=== PATIENT | male | born 1950 | race Caucasian/White ===

== ENCOUNTER → 2024-01-28 | Outpatient (CLI) | payer MEDICARE, BC, SELFPAY ==
[2024-01-28 11:51] LABS: Albumin, Serum 4.7 gm/dL (3.4-4.8); Anion Gap 7 (7-16); BUN/Creatinine Ratio 24 Ratio (12-20); Blood Urea Nitrogen 36 mg/dL (9-23); Calcium 10.5 mg/dL (8.3-10.6); Calcium (Corrected) 10.5 mg/dL (8.5-10.1); Carbon Dioxide 27.5 mMol/L (20.0-31.0); Chloride 101 mMol/L (98-107); Creatinine (Component) 1.5 mg/dL (0.6-1.3); Glucose 217 mg/dL (74-106); Osmolality,Calculated 285 (275-295); Phosphorous 4.1 mg/dL (2.4-5.1); Potassium 5.1 mMol/L (3.4-5.1); Sodium 135 mMol/L (136-145); eGFR 48 See Note
== END | disposition home or self-care (01) ==
LOC: COPL 09:24
PROVIDERS: PCP Internal Medicine; Referring Provider Internal Medicine Cardiovascular Disease; Visit Provider Internal Medicine Cardiovascular Disease
DX: I50.22 Chronic systolic (congestive) heart failure (principal)
CPT/HCPCS: 36415; 80069

== ENCOUNTER → 2024-03-04 | Outpatient (CLI) | payer MEDICARE, BC, SELFPAY ==
[2024-03-04 12:02] LABS: Albumin, Serum 4.7 gm/dL (3.4-4.8); Anion Gap 8 (7-16); BUN/Creatinine Ratio 21 Ratio (12-20); Blood Urea Nitrogen 32 mg/dL (9-23); Calcium 10.2 mg/dL (8.3-10.6); Calcium (Corrected) 10.2 mg/dL (8.5-10.1); Carbon Dioxide 25.2 mMol/L (20.0-31.0); Chloride 103 mMol/L (98-107); Creatinine (Component) 1.5 mg/dL (0.6-1.3); Digoxin 0.8 ng/mL (0.8-2.0); Glucose 187 mg/dL (74-106); Osmolality,Calculated 283 (275-295); Phosphorous 4.4 mg/dL (2.4-5.1); Sodium 136 mMol/L (136-145); eGFR 48 See Note
== END | disposition home or self-care (01) ==
LOC: COPL 10:30
PROVIDERS: PCP Internal Medicine; Referring Provider Internal Medicine Cardiovascular Disease; Visit Provider Internal Medicine Cardiovascular Disease
DX: I50.22 Chronic systolic (congestive) heart failure (principal)
CPT/HCPCS: 36415; 80069; 80162

== ENCOUNTER 2024-04-14 14:39 | Emergency (ER) | payer MEDICARE, BC, SELFPAY ==
--- NOTE | 2024-04-14 14:45 | PD.EDRME ---
Rapid Medical Screening Exam RME Arrival date/time: 04/14/24 14:39 Time Seen by Provider: 04/14/24 14:44 RME Narrative: This is a 74-year-old male brought in by EMS secondary to near syncope. Per EMS the patient has a history of CHF, stent placement, diabetes, pacemaker and atrial fibrillation. The called EMS stated that he was dizzy and almost passed out but did not hit his head. Per EMS the blood pressure was 114/80 sitting and standing was 88/40. They placed oxygen on first mild hypoxia. The patient is on 4 L 99%.
--- NOTE | 2024-04-14 14:46 | XR_ITS ---
Examination: AP chest single view Technique one AP portable upright chest single view Exam date and time: April 14, 2024 1548 hours INDICATIONS: Syncope today. FINDINGS: Mild pneumonia left base Mild prominence left ventricle Ventricular cardiac lead satisfactory position No pulmonary edema Prominent osteopenia IMPRESSION: Mild pneumonia left base
[2024-04-14 14:50] VITALS: PULSE 90; RESP 20; O2SAT 93; BMI 26.0
[2024-04-14 14:54] VITALS: BP 133/72; PULSE 89; RESP 20; TEMP 36.9; O2SAT 94; BMI 26.0
[2024-04-14 15:51] LABS: Basophils % (Auto) 0 % (0-2.5); Eosinophils # (Auto) 0.2 Thou/mm3 (0.0-0.5); Eosinophils % (Auto) 1 % (0-10); Hematocrit 43.7 % (41.0-53.0); Hemoglobin 14.3 g/dL (13.5-16.0); Immature Granulocytes % (Auto) 1 % (0-0); Immature Granulocytes Auto 0.07 Thou/mm3 (0.00-0.00); Lymphocytes # (Auto) 1.2 Thou/mm3 (1.0-4.8); Lymphocytes % (Auto) 10 % (10-50); Mean Corpuscular HGB Conc 32.7 g/dl (31.0-37.0); Mean Corpuscular Hemoglobin 30.9 pg (25.0-35.0); Mean Corpuscular Volume 94 fL (80-100); Monocytes % (Auto) 8 % (0-12); Neutrophils # (Auto) 9.4 Thou/mm3 (1.8-7.7); Neutrophils % (Auto) 80 % (37-80); Nucleated Red Blood Cell % 0 /100 WBC (0); Platelet Count 248 Thou/mm3 (140-440); RDW Standard Deviation 48.2 fL (35.1-43.9); Red Blood Count 4.63 Miln/mm3 (4.50-5.90); White Blood Count 11.8 Thou/mm3 (3.8-10.6)
[2024-04-14 16:29] LABS: Alanine Aminotransferase 15 U/L (10-49); Albumin, Serum 4.2 gm/dL (3.4-4.8); Albumin/Globulin Ratio 1.7 (1.2-2.2); Alkaline Phosphatase 113 U/L (46-116); Anion Gap 10 (7-16); Aspartate Amino Transferase 19 U/L (0-34); BUN/Creatinine Ratio 19 Ratio (12-20); Bilirubin,Total 0.8 mg/dL (0.3-1.2); Blood Urea Nitrogen 25 mg/dL (9-23); Calcium 9.1 mg/dL (8.3-10.6); Calcium (Corrected) 9.1 mg/dL (8.5-10.1); Carbon Dioxide 24.6 mMol/L (20.0-31.0); Chloride 102 mMol/L (98-107); Creatinine (Component) 1.3 mg/dL (0.6-1.3); Digoxin 0.9 ng/mL (0.8-2.0); Estimated Creatinine Clearance 53.9 mL/min (>60); Globulin 2.5 gm/dL (2.3-3.5); Glucose 176 mg/dL (74-106); Osmolality,Calculated 282 (275-295); Potassium 4.7 mMol/L (3.4-5.1); Sodium 137 mMol/L (136-145); Total Protein 6.7 gm/dL (5.7-8.2); eGFR 57 See Note
[2024-04-14 16:31] LABS: Troponin I 0.047 ng/mL (0.0-0.045)
--- NOTE | 2024-04-14 16:48 | PD.EDWEAK ---
ED Weakness RME/HPI General Chief complaint: Syncope / Near Syncope Stated complaint: WEAKNESS Time Seen by Provider: 04/14/24 14:44 Arrival date/time: 04/14/24 14:39 Limitations: no limitations RME / HPI RME / HPI Narrative: DR. TALLEY MAIN ED EVALUATION: 74-year-old male with history of coronary artery disease, status post stent in 2023, ischemic cardiomyopathy, chronic CHF, NSTEMI brought in by EMS secondary to near syncope. Per EMS the patient has a history of CHF, stent placement, diabetes, pacemaker and atrial fibrillation. The called EMS stated that he was dizzy and almost passed out but did not hit his head. Per EMS the blood pressure was 114/80 sitting and standing was 88/40. They placed oxygen on first mild hypoxia. The patient is on 4 L 99%. Patient also complaining of cough, no fevers, and otherwise no weakness. Related Data Home Medications ?Medication ?Instructions ?Recorded ?Confirmed venlafaxine 150 mg 150 mg PO QDAY ##0 07/25/07 07/17/23 capsule,extended release 24 hr (Effexor XR) aspirin 81 mg chewable tablet 81 mg PO QDAY Heart ##0 07/27/15 07/17/23 (Debra Chewable Low Dose Aspirin) Held on 07/17/23. Instructions: Resume on 07/20/23. May resume on 07/20/2023 apixaban 5 mg tablet (Eliquis) 5 mg PO BID 03/06/23 07/17/23 Held on 07/17/23. Instructions: Resume on 07/20/23. May resume on Thursday07/20/2023 cetirizine 10 mg tablet (Zyrtec) 10 mg PO QDAY 03/25/23 07/17/23 semaglutide 2 mg/dose (8 mg/3 mL) 2 mg subcut QWEEK 03/25/23 07/17/23 subcutaneous pen injector (Ozempic) clopidogrel 75 mg tablet (Plavix) 75 mg PO QDAY 03/26/23 07/17/23 Held on 07/17/23. Instructions: Resume on 07/20/23. May resume on Thursday07/20/2023 digoxin 125 mcg (0.125 mg) tablet 125 mcg PO QDAY 03/26/23 07/17/23 levothyroxine 125 mcg tablet 125 mcg PO QDAY 03/26/23 07/17/23 (Synthroid) bumetanide 1 mg tablet 1 mg PO QDAY 07/17/23 07/17/23 carvedilol 6.25 mg tablet 12.5 mg PO QDAY 07/17/23 07/17/23 carvedilol 6.25 mg tablet 12.5 mg PO QDAY 07/17/23 07/17/23 cod liver oil 1 cap PO QDAY 07/17/23 07/17/23 dapagliflozin propanediol 10 mg 10 mg PO QDAY 07/17/23 07/17/23 tablet (Farxiga) diphenhydramine HCl 25 mg tablet 25 mg PO BID 07/17/23 07/17/23 fluconazole 200 mg tablet 200 mg PO DAILY 07/17/23 07/17/23 sacubitril 24 mg-valsartan 26 mg 1 tab PO BID 07/17/23 07/17/23 tablet (Entresto) spironolactone 25 mg tablet 25 mg PO QDAY 07/17/23 07/17/23 Previous Rx's ?Medication ?Instructions ?Recorded sacubitril 24 mg-valsartan 26 mg 1 tab PO BID 1 month #60 tabs 04/07/23 tablet (Entresto) amoxicillin 875 mg-potassium 1 tab PO BID #20 tabs 04/14/24 clavulanate 125 mg tablet Allergies Allergy/AdvReac Type Severity Reaction Status Date / Time No Known Allergies Allergy Verified 03/06/23 09:37 Review of Systems Review of Systems Systems Reviewed: All systems reviewed, normal except as documented Narrative Review of Systems: GEN: No fever, no chills, no weight loss EYES: No discharge, no visual changes, no pain HEENT: No ear pain, no congestion, no sore throat PULM: No shortness of breath, + cough, no congestion CV: No chest pain, no dyspnea on exertion, no palpitations GI: No nausea, no vomiting, no diarrhea, no pain, no constipation : No frequency, no urgency and no dysuria MUSC/SKEL: No joint pain, no back pain SKIN: No rash PSYCH: No hallucinations, no depression HEME/LYMPH: No easy bleeding or bruising tendencies NEURO: + generalized weakness, + near syncope, no headache Past Medical History Past Medical History NEUROLOGIC: Negative Neurological Disorders CARDIAC: Positive Cardiac Disorders, Myocardial Infarction, Atrial Fibrillation, Hypercholesterolemia, Congestive Heart Failure and Hypertension RESPIRATORY: Negative Chronic Obstructive Pulmonary Disease (COPD) GASTROINTESTINAL: Negative Gastrointestinal Disorders GENITOURINARY: Negative Genitourinary Disorders or Renal Disease MUSCULOSKELETAL: Positive Musculoskeletal Disorders ENT: Positive Cataracts ENDOCRINE: Positive Endocrine Disorders, Diabetes Mellitus Type 2 and Hypothyroidism; Negative Diabetes Mellitus Type 1 HEMATOLOGIC: Negative Blood Disorders PSYCHO/SOCIAL: Positive Depression OTHER HISTORY: Negative Blood Transfusions, Anesthesia Reactions or Cancer Family History FAMILY HISTORY: Positive Family Cardiac Disorders; Negative Family Psychiatric Problems, Family Respiratory Disorders or Family Gastrointestinal Problems Surgical History SURGICAL: Positive Cardiac Surgery, Coronary Stent, Cardiac Catheterization, Angiogram, Abdominal Surgery, Joint Replacement and Vasectomy; Negative Endocrine Surgery Social History SMOKING STATUS: Former smoker SECOND HAND EXPOSURE: No SUBSTANCE USE: does not use ED Exam General Limitations: Present no limitations General appearance: Present alert and in no apparent distress Head Head exam: Present atraumatic Eye Eye exam: Present normal appearance, PERRL and EOMI ENT ENT exam: Present normal exam, normal oropharynx and mucous membranes moist Neck Neck exam: Present normal inspection, full ROM and trachea midline Chest Chest inspection: Present normal inspection and symmetric chest wall rise Respiratory Respiratory exam: Present normal lung sounds bilaterally Cardiovascular Cardiovascular exam: Present regular rate, normal rhythm and normal heart sounds Abdominal Exam Abdominal exam: Present soft and normal bowel sounds Extremities Exam Extremities exam: Present normal inspection and full ROM Back Exam Back exam: Present normal inspection and full ROM Neurological Exam Neurological exam: Present alert, oriented X3 and CN II-XII intact Psychiatric Psychiatric exam: Present normal affect and normal mood Skin Skin exam: Present warm, dry, intact and normal color Course Course Course Narrative: 1800: Patient was signed out to Dr. Frias. Past medical, surgical, social and family history reviewed. Vitals and home medications reviewed. Results and treatment plan discussed. They will assume the care of the patient at this time and will follow the patient, pending repeat troponin and final disposition. Quality Measures none Orders Category Date Time Status EKG (ED ONLY) *Do not use* NOW Care 04/14/24 14:47 Completed Fingerstick [Bedside Blood Glucose] NOW Care 04/14/24 14:46 Completed IV [Insert IV] NOW Care 04/14/24 14:46 Completed CXRP [XR chest 1V portable] Stat Exams 04/14/24 14:46 Completed EKG (ED Only) Stat Exams 04/14/24 14:47 Ordered BNP [B-Type Natriuretic Peptide] Stat Lab 04/14/24 15:20 Completed CBC Stat Lab 04/14/24 15:20 Completed CMP [Comprehensive Metabolic Panel] Stat Lab 04/14/24 15:20 Completed Digoxin Stat Lab 04/14/24 15:20 Completed Drug Screen,Urine Stat Lab 04/14/24 17:22 Completed Troponin I Stat Lab 04/14/24 15:20 Completed Troponin I Stat Lab 04/14/24 18:15 Completed Urinalysis Stat Lab 04/14/24 17:22 Completed Albuterol/Ipratr Rt Ngoc [Duoneb Rt Ngoc] Med 04/14/24 16:56 Discontinued 3 ml INH X1 ONE Sodium Chloride 0.9% 250 ml [Ns] 250 ml Med 04/14/24 14:47 Discontinued IV 999 mls/hr Vital Signs Vital signs: Vital Signs Temperature 98.4 F 04/14/24 14:54 Pulse Rate 89 04/14/24 14:54 Respiratory Rate 20 04/14/24 14:54 Blood Pressure 133/72 H 04/14/24 14:54 Pulse Oximetry (%) 94 L 04/14/24 14:54 Oxygen Delivery Method Room Air 04/14/24 14:54 Weakness MDM Narrative MDM Narrative:: The patient is a 73-year-old male with a past medical history of CAD, status post multivessel stent placement, ischemic cardiomyopathy, chronic systolic heart failure, non-STEMI, presenting to the emergency department with cough and lightheadedness. Prior to arrival the patient was clinically orthostatic. Not complaining of any blood in his stool. Chest x-ray here in the emergency department shows that he has a left pneumonia. This could be the reason why he is having his symptoms. Will treat with DuoNeb. On arrival to the emergency department patient's blood pressure 133/72 with 94% O2 sat on room air. No pleuritic component and at this time I do not believe the patient is having a pulmonary embolus and/or dissection. Will treat with DuoNeb, and Doxy cyclin for atypical pneumonia. Jesica Bejarano am scribing for and in the presence of Dr. Talley. Patient data External records reviewed:: [facility] previous records, EMS form and Other (specify) (NSTEMI 4 months ago) Clinical information provided by:: patient and EMS Social determinants that could affect healthcare access:: housing Patient has the following chronic illnesses:: CAD, status post multivessel stent placement, ischemic cardiomyopathy, chronic systolic heart failure, hospitalized 4 month ago with diagnosis of acute NSTEMI How is presenting disease/condition affected by chronic disease/condition?: exacerbated by Evaluation data The following diagnostics were reviewed and interpreted by me:: lab results and radiology exam(s) Lab and/or radiology exams considered but not ordered:: none Interpretation Summary: Procedure(s): XR chest 1V portable Accession Number(s): [id number] cc: Alfredito Monson MD; Lynda Talley MD~ Examination: AP chest single view Technique one AP portable upright chest single view Exam date and time: April 14, 2024 1548 hours INDICATIONS: Syncope today. FINDINGS: Mild pneumonia left base Mild prominence left ventricle Ventricular cardiac lead satisfactory position No pulmonary edema Prominent osteopenia IMPRESSION: Mild pneumonia left base Dictated By: Alfredito Monson MD Medications / Prescriptions Medications or Prescriptions considered but not ordered:: none Medication administrations:: Medication Administration History Discontinued Medications Albuterol/Ipratropium (Albuterol/Ipratropium (Duoneb) Rt Ngoc 3 Ml Nebu) 3 ml INH X1 ONE Stop: 04/14/24 16:57 Last Admin: 04/14/24 17:25 Dose: 3 ml Documented By: FLAQUITA Sodium Chloride (Ns) 250 mls @ 999 mls/hr IV .Q16M ONE Stop: 04/14/24 15:02 Last Admin: 04/14/24 19:07 Dose: Not Given Documented By: SF Non-Admin Reason: Discontinued see above Consultations Consultation(s) initiated? (list below): No Diagnosis Weakness Differential Diagnosis: dehydration and other (influenza, viral, bacterial pneumonia) Most likely diagnosis given after review of the tests above:: No official diagnoses at this time, still pending diagnostic tests. Patient signout to the restaurant shift supervisor provider. Admission Indicated Admission indicated?: not indicated Explain why admission is indicated or not indicated:: No final disposition plan at this time, still pending diagnostic tests. Patient signout to the restaurant shift supervisor provider. Admission Request Was there a request for admission?: No Disposition Plan Disposition Plan: other (specify) (Patient signout to the restaurant shift supervisor provider.) Discharge Plan Plan Patient Disposition: HOME (Self Care) Patient condition on transfer: Stable Prescriptions/Referrals Prescriptions/Med Rec: New amoxicillin-pot clavulanate 875-125 mg tablet 1 tab PO BID Qty: 20 0RF No Action venlafaxine [Effexor XR] 150 MG capsule,extended release 24hr 150 mg PO QDAY Qty: 0 Patient Comments: take 1 tablet by mouth daily aspirin [Debra Chewable Aspirin] 81 MG tablet,chewable 81 mg PO QDAY Qty: 0 Eliquis 5 mg tablet 5 mg PO BID Patient Comments: TAKE 1 TABLET BY MOUTH TWICE A DAY FOR 90 DAYS cetirizine [Zyrtec] 10 mg Tablet 10 mg PO QDAY Ozempic 2 mg/dose (8 mg/3 mL) Pen Injector 2 mg SUBCUT QWEEK clopidogrel [Plavix] 75 mg Tablet 75 mg PO QDAY levothyroxine [Synthroid] 125 mcg Tablet 125 mcg PO QDAY digoxin 125 mcg (0.125 mg) Tablet 125 mcg PO QDAY Entresto 24-26 mg tablet 1 tab PO BID 30 Days Qty: 60 3RF diphenhydramine HCl 25 mg Tablet 25 mg PO BID spironolactone 25 mg Tablet 25 mg PO QDAY dapagliflozin propanediol [Farxiga] 10 mg Tablet 10 mg PO QDAY Entresto 24-26 mg Tablet 1 tab PO BID carvedilol 6.25 mg Tablet 12.5 mg PO QDAY cod liver oil Capsule 1 cap PO QDAY bumetanide 1 mg Tablet 1 mg PO QDAY carvedilol 6.25 mg tablet 12.5 mg PO QDAY Patient Comments: TAKE 1 TABLET BY MOUTH TWICE A DAY WITH FOOD FOR 90 DAYS fluconazole 200 mg tablet 200 mg PO DAILY Referrals: Reggie Jo MD [Primary Care Provider] - In 1 week Problem List Clinical Impression: Community acquired pneumonia Patient/Caregiver Discharge Instructions Education Materials: Treating Pneumonia, ED Pneumonia (Adult) Additional Instructions: Return to the emergency department for any worsening symptoms, or any other concerns. Follow-up with your primary care physician as needed for pain. Take the antibiotics until you have completed. You can use [id number] Tylenol as needed for any fever. Print Language: Kittitian Stand Alone Forms: Any Award Info., Patient Portal Info Letter
[2024-04-14 17:01] LABS: B-Type Natriuretic Peptide 205 pg/mL (0-100)
[2024-04-14] MEDS: ALBUTEROL/IPRATROPIUM (Duoneb) RT SOL 3 ML NEBU INH (17:25)
[2024-04-14 17:27] VITALS: PULSE 94; RESP 25; O2SAT 98
[2024-04-14 17:41] LABS: Collection Type, Urine Voided; Squamous Epithelial Cell,Urine 0 /hpf (0-5)
[2024-04-14 17:53] LABS: Bilirubin,Urine Negative (Negative); Blood,Urine Negative (Negative); Clarity,Urine Clear (Clear/Hazy); Color,Urine Lt-Yellow (Lt Yel-Yel); Glucose, Urine 4+ (Negative); Ketones,Urine Negative (Negative); Leukocyte Esterase,Urine Negative (Negative); Nitrite,Urine Negative (Negative); Protein,Urine 1+ (Neg - Trace); RBC,Urine 1 /hpf (0-3); Specific Gravity,Urine 1.031 (1.001-1.035); Urobilinogen,Urine Negative mg/dL (0.0-1.0); WBC,Urine < 1 /hpf (0-5)
[2024-04-14 17:56] LABS: Amphetamine/Methamp Scrn,U Negative (Negative); Barbiturate Screen,Urine Negative (Negative); Benzodiazepines Screen,Urine Negative (Negative); Benzoylecgonine Screen, Ur Negative (Negative); Fentanyl Screen,Urine Negative (Negative); Opiate Screen,Urine Negative (Negative); THC Screen,Urine Negative (Negative)
[2024-04-14 18:29] VITALS: BP 105/75; PULSE 97; RESP 16; TEMP 36.5; O2SAT 94
[2024-04-14 18:40] LABS: Troponin I 0.044 ng/mL (0.0-0.045)
--- NOTE | 2024-04-14 18:40 | PD.EDADDENDU ---
Emergency Room Addendum Addendum Narrative: 1811: Care assumed from Dr. Talley, the previous shift emergency physician. Past medical, surgical, social and family history reviewed. Vitals and home medications reviewed. Results and treatment plan discussed. I will assume the care of the patient at this time and will follow the patient, pending repeat troponin. Please refer to the emergency department record for history and examination from initial visit.
[2024-04-14 19:10] VITALS: BP 130/83; PULSE 99; RESP 20; TEMP 36.7; O2SAT 96
== END 2024-04-14 19:14 | disposition home or self-care (01) ==
PROVIDERS: Emergency Medicine; Emergency Provider Emergency Medicine; PCP Internal Medicine
DX: J18.9 Pneumonia, unspecified organism (principal); R09.02 Hypoxemia; I11.0 Hypertensive heart disease with heart failure; I50.22 Chronic systolic (congestive) heart failure; I48.91 Unspecified atrial fibrillation; I25.5 Ischemic cardiomyopathy; E11.9 Type 2 diabetes mellitus without complications; E03.9 Hypothyroidism, unspecified; E78.00 Pure hypercholesterolemia, unspecified; I25.10 Atherosclerotic heart disease of native coronary artery without angina pectoris; I25.2 Old myocardial infarction; Z95.5 Presence of coronary angioplasty implant and graft; Z95.0 Presence of cardiac pacemaker; Z87.891 Personal history of nicotine dependence
CPT/HCPCS: 36415; 71045; 80053; 80162; 80307; 81001; 83880; 84484; 85025; 93005; 94640; 99283; A9270

== ENCOUNTER → 2024-05-06 | Outpatient (CLI) | payer MEDICARE, BC, SELFPAY ==
[2024-05-06 12:18] LABS: Albumin, Serum 4.2 gm/dL (3.4-4.8); Anion Gap 10 (7-16); BUN/Creatinine Ratio 16 Ratio (12-20); Blood Urea Nitrogen 19 mg/dL (9-23); Calcium 9.6 mg/dL (8.3-10.6); Calcium (Corrected) 9.6 mg/dL (8.5-10.1); Carbon Dioxide 25.4 mMol/L (20.0-31.0); Chloride 107 mMol/L (98-107); Creatinine (Component) 1.2 mg/dL (0.6-1.3); Glucose 152 mg/dL (74-106); Osmolality,Calculated 288 (275-295); Phosphorous 3.9 mg/dL (2.4-5.1); Potassium 5.2 mMol/L (3.4-5.1); Sodium 142 mMol/L (136-145); eGFR > 60 See Note
== END | disposition home or self-care (01) ==
LOC: COPL 10:45
PROVIDERS: PCP Internal Medicine; Referring Provider Internal Medicine Cardiovascular Disease; Visit Provider Internal Medicine Cardiovascular Disease
DX: I50.22 Chronic systolic (congestive) heart failure (principal)
CPT/HCPCS: 36415; 80069

== ENCOUNTER → 2024-06-20 | Outpatient (CLI) | payer MEDICARE, BC, SELFPAY ==
[2024-06-20 15:56] LABS: Albumin, Serum 4.3 gm/dL (3.4-4.8); Anion Gap 7 (7-16); BUN/Creatinine Ratio 13 Ratio (12-20); Blood Urea Nitrogen 20 mg/dL (9-23); Calcium 9.6 mg/dL (8.3-10.6); Calcium (Corrected) 9.6 mg/dL (8.5-10.1); Carbon Dioxide 27.2 mMol/L (20.0-31.0); Chloride 107 mMol/L (98-107); Creatinine (Component) 1.5 mg/dL (0.6-1.3); Glucose 100 mg/dL (74-106); Osmolality,Calculated 283 (275-295); Potassium 4.6 mMol/L (3.4-5.1); Sodium 141 mMol/L (136-145); eGFR 48 See Note
== END | disposition home or self-care (01) ==
LOC: COPL 14:33
PROVIDERS: PCP Internal Medicine; Referring Provider Internal Medicine Cardiovascular Disease; Visit Provider Internal Medicine Cardiovascular Disease
DX: I50.22 Chronic systolic (congestive) heart failure (principal)
CPT/HCPCS: 36415; 80069

== ENCOUNTER → 2024-08-18 | Outpatient (CLI) | payer MEDICARE, BC, SELFPAY ==
[2024-08-18 12:28] LABS: Albumin, Serum 4.3 gm/dL (3.4-4.8); Anion Gap 8 (7-16); BUN/Creatinine Ratio 13 Ratio (12-20); Blood Urea Nitrogen 16 mg/dL (9-23); Calcium 9.2 mg/dL (8.3-10.6); Calcium (Corrected) 9.2 mg/dL (8.5-10.1); Carbon Dioxide 28.4 mMol/L (20.0-31.0); Chloride 105 mMol/L (98-107); Creatinine (Component) 1.2 mg/dL (0.6-1.3); Glucose 132 mg/dL (74-106); Osmolality,Calculated 284 (275-295); Phosphorous 3.5 mg/dL (2.4-5.1); Potassium 4.7 mMol/L (3.4-5.1); Sodium 141 mMol/L (136-145); eGFR > 60 See Note
== END | disposition home or self-care (01) ==
LOC: COPL 11:33
PROVIDERS: PCP Internal Medicine; Referring Provider Internal Medicine Cardiovascular Disease; Visit Provider Internal Medicine Cardiovascular Disease
DX: I50.22 Chronic systolic (congestive) heart failure (principal)
CPT/HCPCS: 36415; 80069

== ENCOUNTER → 2024-10-25 | Outpatient (CLI) | payer MEDICARE, BC, SELFPAY ==
[2024-10-25 14:21] LABS: Albumin, Serum 4.1 gm/dL (3.4-4.8); Anion Gap 11 (7-16); BUN/Creatinine Ratio 16 Ratio (12-20); Blood Urea Nitrogen 21 mg/dL (9-23); Calcium 9.6 mg/dL (8.3-10.6); Calcium (Corrected) 9.6 mg/dL (8.5-10.1); Carbon Dioxide 24.9 mMol/L (20.0-31.0); Chloride 108 mMol/L (98-107); Creatinine (Component) 1.3 mg/dL (0.6-1.3); Digoxin 0.7 ng/mL (0.8-2.0); Glucose 125 mg/dL (74-106); Osmolality,Calculated 290 (275-295); Phosphorous 3.9 mg/dL (2.4-5.1); Potassium 4.1 mMol/L (3.4-5.1); Sodium 144 mMol/L (136-145); eGFR 57 See Note
== END | disposition home or self-care (01) ==
LOC: COPL 13:11
PROVIDERS: PCP Internal Medicine; Referring Provider Internal Medicine Cardiovascular Disease; Visit Provider Internal Medicine Cardiovascular Disease
DX: I50.22 Chronic systolic (congestive) heart failure (principal)
CPT/HCPCS: 36415; 80069; 80162

== ENCOUNTER → 2025-01-25 | Outpatient (CLI) | payer MEDICARE, BC, SELFPAY ==
[2025-01-25 14:31] LABS: Albumin, Serum 4.4 gm/dL (3.4-4.8); Anion Gap 9 (7-16); BUN/Creatinine Ratio 16 Ratio (12-20); Blood Urea Nitrogen 24 mg/dL (9-23); Calcium 9.2 mg/dL (8.3-10.6); Calcium (Corrected) 9.2 mg/dL (8.5-10.1); Carbon Dioxide 24.8 mMol/L (20.0-31.0); Chloride 109 mMol/L (98-107); Creatinine (Component) 1.5 mg/dL (0.6-1.3); Glucose 168 mg/dL (74-106); Osmolality,Calculated 292 (275-295); Phosphorous 3.9 mg/dL (2.4-5.1); Potassium 4.6 mMol/L (3.4-5.1); Sodium 143 mMol/L (136-145); eGFR 48 See Note
== END | disposition home or self-care (01) ==
LOC: COPL 13:17
PROVIDERS: PCP Internal Medicine; Referring Provider Internal Medicine Cardiovascular Disease; Visit Provider Internal Medicine Cardiovascular Disease
DX: E13.9 Other specified diabetes mellitus without complications (principal); I50.22 Chronic systolic (congestive) heart failure; I48.21 Permanent atrial fibrillation
CPT/HCPCS: 36415; 80069